=== PATIENT | male | born 1995 | race Caucasian/White ===

== ENCOUNTER 2017-09-14 21:28 | Emergency (ER) | payer OTHER ==
[~2017-09-14] VITALS: Ht 185.4 cm; Wt 75.4 kg
[~2017-09-14 21:28] MED LIST: IBUP800T23 PO; Z.0.NO CURRENT MEDS
[2017-09-14 21:37] VITALS: BP 145/70; PULSE 64; RESP 16; TEMP 97.8; O2SAT 100
[2017-09-14] MEDS ORDERED: CLIN300C5 PO (21:42)
[2017-09-14] MEDS ORDERED: BACT800T5 PO (21:42)
[2017-09-14] MEDS ORDERED: PIPERACIL-TAZO 4.5 GM PREMIX 100 ML IV STA (21:59)
[2017-09-14] MEDS ORDERED: VANCOMYCIN INJ 1,000 MG in SODIUM CHLOR 0.9% 250 ML INJ 250 ML IV STA (21:59)
[2017-09-14] MEDS ORDERED: LIDOCAINE HCL 1% 30 ML VIAL INFIL ONE (22:00)
--- NOTE | 2017-09-14 22:07 | PD ---
HPI . Skin infection Chief Complaint: Skin Problem Time Seen by Provider: 21:58 Travel History International Travel<30 days: No Contact w/Intl Traveler<30days: No Traveled to known affect area: No History of Present Illness HPI Patient presents complaining with a skin infection. Onset was about a week ago. He developed a pimple on his right thigh. It became progressively worse. He subsequently presented to an outside facility 2 days ago and clindamycin. He was instructed to present here if his symptoms worsened. He comes in to us today stating that his symptoms are getting worse. He denies any associated fever. There has been no drainage. He rates his pain at 3/10. PFSH Past Medical History Diabetes: No Diminished Hearing: No Immunizations Current: Yes Past Surgical History Ear Surgery: Yes (TUBES IN EARS A CHILD) Other Surgery: Yes (BILATERAL EAR TUBES) Social History Alcohol Use: Yes Tobacco Use: No Substance Use: Yes (MARIJUANA AND ALCOHOL) Allergies-Medications (Allergen,Severity, Reaction): Coded Allergies: No Known Allergies (Verified Adverse Reaction, Unknown, 09/14/17) Reported Meds & Prescriptions Reported Meds & Active Scripts Active Reported Bactrim DS (Sulfamethoxazole-Trimethoprim) 800-160 Mg Tab 1 Tab PO BID Clindamycin (Clindamycin HCl) 300 Mg Cap 300 Mg PO BID Review of Systems Except as stated in HPI: all other systems reviewed are Neg General / Constitutional: No: Fever, Chills Skin: Positive Change in Pigmentation Physical Exam Narrative GENERAL: Awake and alert and in no acute distress. SKIN: Warm and dry. Area of erythema on the right side. Induration in the center. HEAD: Normocephalic/atraumatic. EYES: Pupils are equal. Extraocular movements are intact. Delete NECK: Normal range of motion. CARDIOVASCULAR: Regular rate and rhythm. RESPIRATORY: Nonlabored respirations. Delete MUSCULOSKELETAL: Atraumatic. NEUROLOGICAL: Nonfocal. PSYCHIATRIC: Appropriate mood and affect. Data Data Last Documented VS Vital Signs Date Time Temp Pulse Resp B/P (MAP) Pulse Ox O2 Delivery O2 Flow Rate FiO2 09/14/17 21:37 97.8 64 16 145/70 (95) 100 Orders Orders Lidocaine 1% Inj (Xylocaine 1% Inj) (09/14/17 22:00) Sepsis Workup Initiated (09/14/17 ) Complete Blood Count With Diff (09/14/17 21:59) Comprehensive Metabolic Panel (09/14/17 21:59) Lactic Acid Sepsis Protocol (09/14/17 21:59) Blood Culture (09/14/17 21:59) Iv Access Insert/Monitor (09/14/17 21:59) Piperacil-Tazo 4.5 Gm Premix (Zosyn 4.5 (09/14/17 21:59) Vancomycin Inj (Vancomycin Inj) (09/14/17 21:59) Ed Discharge Order (09/15/17 00:23) Labs Laboratory Tests Test 09/14/17 22:50 White Blood Count 10.1 TH/MM3 Red Blood Count 4.72 MIL/MM3 Hemoglobin 13.9 GM/DL Hematocrit 41.5 % Mean Corpuscular Volume 88.1 FL Mean Corpuscular Hemoglobin 29.5 PG Mean Corpuscular Hemoglobin Concent 33.4 % Red Cell Distribution Width 11.6 % Platelet Count 266 TH/MM3 Mean Platelet Volume 7.7 FL Neutrophils (%) (Auto) 64.9 % Lymphocytes (%) (Auto) 22.0 % Monocytes (%) (Auto) 8.0 % Eosinophils (%) (Auto) 4.2 % Basophils (%) (Auto) 0.9 % Neutrophils # (Auto) 6.6 TH/MM3 Lymphocytes # (Auto) 2.2 TH/MM3 Monocytes # (Auto) 0.8 TH/MM3 Eosinophils # (Auto) 0.4 TH/MM3 Basophils # (Auto) 0.1 TH/MM3 CBC Comment DIFF FINAL Differential Comment Blood Urea Nitrogen 14 MG/DL Creatinine 1.20 MG/DL Random Glucose 74 MG/DL Total Protein 7.9 GM/DL Albumin 4.0 GM/DL Calcium Level 8.7 MG/DL Alkaline Phosphatase 54 U/L Aspartate Amino Transf (AST/SGOT) 18 U/L Alanine Aminotransferase (ALT/SGPT) 21 U/L Total Bilirubin 0.3 MG/DL Sodium Level 138 MEQ/L Potassium Level 3.6 MEQ/L Chloride Level 104 MEQ/L Carbon Dioxide Level 29.8 MEQ/L Anion Gap 4 MEQ/L Estimat Glomerular Filtration Rate 75 ML/MIN Lactic Acid Level 1.3 mmol/L MDM Medical Decision Making Medical Screen Exam Complete: Yes Emergency Medical Condition: Yes Differential Diagnosis My differential diagnosis includes but is not limited to localized wound infection, cellulitis, abscess Narrative Course This patient presents with cellulitis of his right thigh. There is central induration. I will I&D the area. I have ordered IV Zosyn and vancomycin. Lab workup is in process. I suspect that he will be stable for discharge. CBC & BMP Diagram 09/14/17 22:50 Total Protein 7.9, Albumin 4.0, Calcium Level 8.7, Alkaline Phosphatase 54, Aspartate Amino Transf (AST/SGOT) 18, Alanine Aminotransferase (ALT/SGPT) 21, Total Bilirubin 0.3 LA 1.3 Procedures Procedure Narrative INCISION AND DRAINAGE OF ABSCESS: The area was prepped and was sterilely draped. A subcutaneous wheal of 1 % Xylocaine without epinephrine with a total number 4 mL was used to anesthetize the area properly. A number 11 scalpel was used to make a 1-cm incision across the area of the abscess. The abscess was drained, complex loculations were broken down. Quarter inch iodoform packing was placed in the wound. Sterile dressing applied. Patient advised to have packing removed in two days. Diagnosis Primary Impression: Cellulitis Qualified Codes: L03.115 - Cellulitis of right lower limb Additional Impression: Abscess Patient Instructions: Cellulitis (DC), General Instructions Additional Instructions: Return in 2 days for wound check and packing removal Continue antibiotics previously prescribed Disposition: 01 DISCHARGE HOME Condition: Stable Anum Caldwell MD Sep 14, 2017 22:07
[2017-09-14 23:02] LABS: AUTOMATED NEUTROPHIL # 6.6 TH/MM3 (1.8-7.7); BASOPHIL # 0.1 TH/MM3 (0-0.2); BASOPHIL % 0.9 % (0.0-2.0); EOSINOPHIL # 0.4 TH/MM3 (0-0.4); EOSINOPHIL % 4.2 % (0.0-4.0); HEMATOCRIT 41.5 % (39.0-51.0); HEMOGLOBIN 13.9 GM/DL (13.0-17.0); LYMPHOCYTE # 2.2 TH/MM3 (1.0-4.8); MEAN CELL VOLUME 88.1 FL (80.0-100.0); MEAN CORPUSCULAR HEMOGLOBIN 29.5 PG (27.0-34.0); MEAN CORPUSCULAR HGB CONC 33.4 % (32.0-36.0); MEAN PLATELET VOLUME 7.7 FL (7.0-11.0); MONOCYTE # 0.8 TH/MM3 (0-0.9); NEUT % 64.9 % (16.0-70.0); PLATELET COUNT 266 TH/MM3 (150-450); RED BLOOD COUNT 4.72 MIL/MM3 (4.50-5.90); RED CELL DISTRIBUTION WIDTH 11.6 % (11.6-17.2); WHITE BLOOD COUNT 10.1 TH/MM3 (4.0-11.0)
[2017-09-14 23:17] LABS: CHLORIDE 104 MEQ/L (98-107); SODIUM (NA) 138 MEQ/L (136-145)
[2017-09-14 23:20] LABS: BICARBONATE 29.8 MEQ/L (21.0-32.0); CALCIUM 8.7 MG/DL (8.5-10.1); GLUCOSE,RANDOM 74 MG/DL (74-106)
[2017-09-14 23:21] LABS: BLOOD UREA NITROGEN 14 MG/DL (7-18)
[2017-09-14 23:23] LABS: ALT (GPT) 21 U/L (12-78); AST (GOT) 18 U/L (15-37)
[2017-09-14 23:24] LABS: GLOMERULAR FILTRATION RATE 75 ML/MIN (>89)
[2017-09-14 23:25] LABS: TOTAL BILIRUBIN ADULT 0.3 MG/DL (0.2-1.0); TOTAL PROTEIN 7.9 GM/DL (6.4-8.2)
[2017-09-14 23:26] LABS: ALKALINE PHOSPHATASE 54 U/L (45-117)
[2017-09-15] VITALS: BP 118/74; PULSE 92; RESP 20; O2SAT 99
[2017-09-15 02:10] VITALS: BP 104/58
[2017-09-16] MEDS ORDERED: BACT800T5 PO (19:14)
[2017-09-16] MEDS ORDERED: CEPH-460 PO (19:14)
== END 2017-09-15 02:16 | disposition home or self-care (01) ==
LOC: PHED 21:28
DX: L03.115 Cellulitis of right lower limb (principal); L02.415 Cutaneous abscess of right lower limb
CPT/HCPCS: 10061; 80053; 83605; 85025; 87040; 96365; 96367; 99284; J2543; J3370; J7050

== ENCOUNTER 2017-09-16 17:54 | Emergency (ER) | payer OTHER ==
[~2017-09-16] VITALS: Ht 185.4 cm; Wt 74.6 kg
[~2017-09-16 17:54] MED LIST changes: +BACT800T5 PO; +CLIN300C5 PO; -IBUP800T23 PO; -Z.0.NO CURRENT MEDS
[2017-09-16 17:57] VITALS: BP 124/67; PULSE 76; RESP 16; TEMP 98.6; O2SAT 98
--- NOTE | 2017-09-16 19:08 | PD ---
HPI Chief Complaint: Wound/Suture/Staple Re-Check Time Seen by Provider: 18:58 Travel History International Travel<30 days: No Contact w/Intl Traveler<30days: No Traveled to known affect area: No History of Present Illness HPI This Is a 22-year-old male here for packing removal from abscess to his right thigh. Incision and drainage was performed 2 days ago. She denies symptom improvement since that time. He denies fever or chills. He reports the redness and pain are decreasing. Symptom severity is moderate. No aggravating or alleviating factors. [facility] Past Medical History Medical History: Denies Significant Hx Diabetes: No Diminished Hearing: No Immunizations Current: Yes Tetanus Vaccination: > 5 Years Influenza Vaccination: No Past Surgical History Ear Surgery: Yes (TUBES IN EARS A CHILD) Other Surgery: Yes (BILATERAL EAR TUBES) Social History Alcohol Use: Yes Tobacco Use: No Substance Use: No (DENIES) Allergies-Medications (Allergen,Severity, Reaction): Coded Allergies: No Known Allergies (Verified Adverse Reaction, Unknown, 09/16/17) Reported Meds & Prescriptions Reported Meds & Active Scripts Active Reported Bactrim DS (Sulfamethoxazole-Trimethoprim) 800-160 Mg Tab 1 Tab PO BID Clindamycin (Clindamycin HCl) 300 Mg Cap 300 Mg PO BID Review of Systems Except as stated in HPI: all other systems reviewed are Neg General / Constitutional: No: Fever Physical Exam Narrative GENERAL: Alert and well-appearing 22-year-old male SKIN: Warm and dry. Healing abscess to the right medial thigh. Surrounded by approximately 5 cm of very faint erythema. No induration or fluctuance. HEAD: Normocephalic. EYES: No injection or drainage. NECK: Supple, trachea midline. CARDIOVASCULAR: Regular rate and rhythm without murmurs, gallops, or rubs. MUSCULOSKELETAL: No cyanosis, or edema. Data Data Last Documented VS Vital Signs Date Time Temp Pulse Resp B/P (MAP) Pulse Ox O2 Delivery O2 Flow Rate FiO2 09/16/17 17:57 98.6 76 16 124/67 (86) 98 MDM Medical Decision Making Medical Screen Exam Complete: Yes Emergency Medical Condition: Yes Differential Diagnosis Abscess, cellulitis, lymphangitis Narrative Course 22-year-old male here for packing removal to abscess of his right medial thigh. He was originally seen at an urgent care clinic and put on gentamicin. He was then seen in the ER for outpatient treatment failure and started on Bactrim. The abscess appears to be healing, but he continues to have right leg cellulitis. Patient is reporting symptom improvement. Packing removed. Sterile dressing applied. He apparently only has 2 more days worth of antibiotics. His original prescription was for only 5 days. I believe he needs at least 5-7 more days to have favorable outcome. Patient will be represcribed Bactrim and Keflex Diagnosis Primary Impression: Abscess Referrals: [facility] Additional Instructions: Clean the area daily with soap and warm water. Keep it covered with a clean dry dressing. Scripts Sulfamethoxazole-Trimethoprim (Bactrim DS) 800-160 Mg Tab 1 TAB PO BID for Infection, #14 TAB 0 Refills Prov: Angela Lugo 09/16/17 Cephalexin (Keflex) 500 Mg Capsule 500 MG PO Q6H for Infection for 7 Days, #28 CAP 0 Refills Prov: Angela Lugo 09/16/17 Disposition: 01 DISCHARGE HOME Condition: Stable Angela Luog Sep 16, 2017 19:08
[2017-09-16] MEDS ORDERED: BACT800T5 PO (19:14)
[2017-09-16] MEDS ORDERED: CEPH-460 PO (19:14)
== END 2017-09-16 19:28 | disposition home or self-care (01) ==
LOC: PHEFT 17:54
DX: L03.115 Cellulitis of right lower limb (principal); Z48.00 Encounter for change or removal of nonsurgical wound dressing
CPT/HCPCS: 99281